=== PATIENT | male | born 2005 | race Caucasian/White ===

== ENCOUNTER 2025-07-04 18:45 | Emergency (ER) | payer OTHER, SELFPAY ==
[2025-07-04 18:49] VITALS: BP 146/83
[2025-07-04 20:26] VITALS: BMI 22.1
[2025-07-04 20:30] VITALS: BP 133/74
[2025-07-04 20:31] VITALS: BP 133/74
[2025-07-04 20:55] LABS: Hematocrit 39.3 % (39.0-52.0); Hemoglobin 14.4 g/dL (13.0-18.0); Mean Corp Hgb Conc. 36.6 g/dL (33.0-37.0); Mean Corpuscular Volume 87.9 fL (80.0-94.0); Nucleated Red Blood Cells % 0 % (-); Platelet Count 262 10^3/uL (130-400); Red Cell Dist. Width 11.3 % (11.5-14.5)
[2025-07-04 21:00] VITALS: BP 137/65
[2025-07-04 21:06] LABS: ALT (SGPT) 29 U/L (0-50); AST (SGOT) 30 U/L (17-59); Albumin 4.7 g/dl (3.5-5.0); Alkaline Phosphatase 97 U/L (38-126); Blood Urea Nitrogen 20 mg/dl (9-20); Calcium 9.7 mg/dl (8.4-10.2); Carbon Dioxide 28 mmol/L (22-30); Chloride 103 mmol/L (98-107); Estimated Creatinine Clearance 117 ml/min; Glucose 92 mg/dl (70-99); Potassium 4.5 mmol/L (3.5-5.1); Sodium 136 mmol/L (135-145); Total Protein 7.6 g/dl (6.3-8.2); eGFR > 60.00
[2025-07-04 21:18] LABS: Troponin I < 0.012 ng/ml
--- NOTE | 2025-07-04 21:40 | ED.GENMED ---
History of Present Illness
General
Chief Complaint: Chest Pain
Source: patient and family (Mom at bedside)
Exam Limitations: none
Time Seen by Provider: 07/04/25 21:18
Nursing documentation reviewed up to this point in time: agreed with
History of Present Illness
History of Present Illness:
19-year-old male with history of Lyme disease with arthritis as a child had to do 2 years of physical therapy up to age 15 then acupuncture treatments for 2 years to age 17 then put on Cymbalta, ADHD, anxiety (per mom at bedside his anxiety was
disabling during middle school and he was on Prozac), OCD is here stating for the past 4 days he has had intermittent episodes of lightheadedness, left shoulder and chest pain. He admits to feeling depressed but not suicidal. Mom states they are in
the process of looking for a therapist, he has been in therapy in the past. Asked mom to step out of the room and pt expresses wish to find his own therapist, states his parents have always been 'pushing medication and pills' all his life. He has
stopped taking his medications (Adderal 15 mg, Propranolol [never took it after one dose], Cymbalta, Hydroxyzine). He states he wants to find his own therapist and be more in charge of his care. He smokes cigarettes and occasional marijuana. He
denies alcohol use.
Past History
Past History
ED Past Medical History: None and Psychiatric (ADHD, anxiety, OCD)
Social History
Tobacco: Smoker
Alcohol: None
Drug: Marijuana
Personal: Single
Living: with family
Employment: Employed
Review of Systems
Review of Systems
Allergies reviewed?: Yes
All Other Systems: ROS reviewed and negative except as documented in HPI and ROS
Phy Exam
Physical Exam
Physical Exam:
GENERAL: No acute distress. A&Ox3.
CONSTITUTIONAL: Afebrile.
EYES: clear, conjunctivae normal
ENMT: moist mucus membranes, Pharynx nl
RESPIRATORY: Regular respirations, nonlabored, lungs clear.
CARDIOVASCULAR: Regular rate and rhythm, no murmurs, no rubs.
GI: Soft, nontender, normal BS
MUSCULOSKELETAL: Moves with ease. Well perfused. Unable to reproduce chest pain with deep palpation.
SKIN: Warm, dry, pink
PSYCH: Normal mood and affect. Well kept, interactive and appropriate
NEUROLOGIC: Awake, alert and oriented. No focal neurological deficits
Scores
Heart Score for Chest Pain Patients
STEMI patient?: Not applicable
Course
Orders/Labs/Results
Orders:
Orders
07/04/25 18:47
Electrocardiogram (*1) Urgent
Reason for Study: Chest Pain
EKG- Treatment ONCE
07/04/25 20:36
CXR2 [CR Chest - 2 Views ] Urgent
Comment:
Reason For Exam: chest pain
07/04/25 20:43
Complete Blood Count/With Diff Urgent
Comprehensive Metabolic Panel Urgent
TSH Reflex To Free T4 Urgent
Troponin I Urgent
07/04/25 21:39
Crisis Consult Urgent
Reason for Consult: Needs out patient resources
Abnormal Lab Results
07/04/25
20:43
WBC 4.6 L 10^3/uL
(4.8-10.8)
RBC 4.47 L 10^6/uL
(4.70-6.10)
MCH 32.2 H pg
(27.0-31.0)
RDW 11.3 L %
(11.5-14.5)
Monocytes % 10.8 H %
(1.7-9.3)
07/04/25 20:43
07/04/25 20:43
Vital Signs
Initial and Last Documented VS:
Initial Vital Signs
Temp Pulse Resp BP Pulse Ox
97.8 F 74 16 146/83 100
07/04/25 18:49 07/04/25 18:49 07/04/25 18:49 07/04/25 18:49 07/04/25 18:49
Last Documented Vital Signs
Temp Pulse Resp BP Pulse Ox
97.8 F 63 18 137/71 98
07/04/25 18:49 07/04/25 22:00 07/04/25 20:31 07/04/25 22:00 07/04/25 22:00
MDM/Problems Addressed
MDM/Problems Addressed:
19-year-old male with history of Lyme disease with arthritis as a child had to do 2 years of physical therapy up to age 15 then acupuncture treatments for 2 years to age 17 then put on Cymbalta, ADHD, anxiety (per mom at bedside his anxiety was
disabling during middle school and he was on Prozac), OCD is here stating for the past 4 days he has had intermittent episodes of lightheadedness, left shoulder and chest pain. He admits to feeling depressed but not suicidal. Mom states they are in
the process of looking for a therapist, he has been in therapy in the past. Asked mom to step out of the room and pt expresses wish to find his own therapist, states his parents have always been 'pushing medication and pills' all his life. He has
stopped taking his medications (Adderal 15 mg, Propranolol [never took it after one dose], Cymbalta, Hydroxyzine). He states he wants to find his own therapist and be more in charge of his care. He smokes cigarettes and occasional marijuana. He
denies alcohol use.
EKG normal sinus with sinus arrhythmia heart rate 72
CBC normal CMP normal
Troponin normal TSH normal
Chest x-ray NAD
After discussing all normal findings patient states he feels a lot better he was afraid there was something in his lungs because he has been smoking for several years
acid conditioning worker in and provided him with community resources and informed him that she has contacted some of those resources and they will be reaching out to him and he can decide if he wants to continue with them
*Pulse Oximetry
SaO2: 97
Oxygen Mode of Delivery: Room air
Patient hypoxic: not evaluated
*Critical Care Note
Total Time (30-74mins, 75-104mins- exclusive of procedures): Not Applicable
ED Attending Note
-
Portions of this chart may have been created with voice recognition software.� Occasional wrong word or��sound alike� substitutions may have occurred due to the inherent limitations of voice recognition software.
Discharge Plan
Departure
Patient Disposition: Home (Routine Discharge)
Date of Disposition: 07/04/25
Time of Disposition: 22:03
Patient with high blood pressure during this ER visit?: No
Condition: Good
Discharge Problem:
Depression
Instructions: Depression in adults - ED (DC)
Referrals:
UNKNOWN - PT DOES,NOT KNOW [Family Provider]
Activity Restrictions/Additional Instructions:
As we discussed, your workup here today shows nothing worrisome, your EKG and chest x-ray are normal. Your blood work is normal
Good luck finding a therapist that you are comfortable with
Interventions
Interventions:
*Risk Screen - Suicide Last Done: 07/04/25 18:49
*General Assessment Last Done: 07/04/25 20:26
*Neglect/Abuse Screening Last Done: 07/04/25 18:49
*ED- Fall Risk Assessment Last Done: 07/04/25 20:26
*ED COVID-19 Vaccine History Last Done: 07/04/25 20:26
*ED Influenza Vaccine History Last Done: 07/04/25 20:26
*Nursing Disposition Last Done: 07/04/25 22:31
ED- Cardiac Assessment Last Done: 07/04/25 20:35
ED- Neurological Assessment Last Done: 07/04/25 20:35
ED- Pulmonary Assessment Last Done: 07/04/25 20:35
Discharge Date and Time
Discharge Date/Time: 07/04/25 22:32
Print Language: INDONESIAN
[2025-07-04 22:00] VITALS: BP 137/71
== END 2025-07-04 22:32 | disposition home or self-care (01) ==
LOC: EMR 18:45
PROVIDERS: Emergency Medicine; EMERGENCY PHYSICIAN Student in an Organized Health Care Education/Training Program
DX: F32.A Depression, unspecified (principal); F41.9 Anxiety disorder, unspecified; F42.9 Obsessive-compulsive disorder, unspecified; F90.9 Attention-deficit hyperactivity disorder, unspecified type; F12.90 Cannabis use, unspecified, uncomplicated; A69.23 Arthritis due to Lyme disease; F17.210 Nicotine dependence, cigarettes, uncomplicated; T43.626A Underdosing of amphetamines, initial encounter; T44.7X6A Underdosing of beta-adrenoreceptor antagonists, initial encounter; T43.216A Underdosing of selective serotonin and norepinephrine reuptake inhibitors, initial encounter; T43.596A Underdosing of other antipsychotics and neuroleptics, initial encounter; Z91.128 Patient's intentional underdosing of medication regimen for other reason
CPT/HCPCS: 99284; 71046; 80053; 84443; 84484; 85025; 93005